=== PATIENT | male | born 1975 | race Caucasian/White ===

== ENCOUNTER 2020-01-29 11:03 | Emergency (ER) | payer OTHER, MEDICAID ==
[~2020-01-29] VITALS: Ht 175.3 cm; Wt 93.9 kg
[2020-01-29 11:14] VITALS: Ht 175.3 cm; Wt 93.9 kg
[2020-01-29 13:03] VITALS: BP 160/105
== END 2020-01-29 13:30 | disposition home or self-care (01) ==
LOC: ED 11:03
DX: Z04.1 Encounter for examination and observation following transport accident (principal); Z02.79 Encounter for issue of other medical certificate; R03.0 Elevated blood-pressure reading, without diagnosis of hypertension; F17.200 Nicotine dependence, unspecified, uncomplicated; V49.49XA Driver injured in collision with other motor vehicles in traffic accident, initial encounter; Y93.I9 Activity, other involving external motion; Y92.488 Other paved roadways as the place of occurrence of the external cause; Y99.8 Other external cause status
CPT/HCPCS: 99406